=== PATIENT | male | born 1960 | race Caucasian/White ===

== ENCOUNTER 2023-09-09 09:37 | Emergency (ER) | payer OTHER ==
[~2023-09-09] VITALS: Ht 177.8 cm; Wt 82.6 kg
[2023-09-09 09:44] VITALS: BP 149/104; TEMP 98.5
[2023-09-09] MEDS ORDERED: FLUT16SP16 BNOSTRILS (10:06)
[2023-09-09] MEDS ORDERED: CETI1TAB9 PO (10:06)
[2023-09-09 10:24] VITALS: O2SAT 98
== END 2023-09-09 10:24 | disposition home or self-care (01) ==
LOC: ER 09:43
DX: J06.9 Acute upper respiratory infection, unspecified (principal); Z60.2 Problems related to living alone